=== PATIENT | male | born 1995 | race Caucasian/White ===

== ENCOUNTER 2024-05-10 04:16 | Day surgery (SDC) | payer OTHER ==
[2024-05-10] VITALS (245 sets, daily range): BP systolic 76–139; BP diastolic 38–93
[~2024-05-10] VITALS: Ht 182.9 cm; Wt 79.0 kg
[2024-05-10] MEDS ORDERED: cloNIDine HCL 0.1 MG/TAB PO PRN (07:30)
[2024-05-10] MEDS ORDERED: LACTATED RINGER'S 1,000 ML IV PRN ×3 (07:30→19:00)
[2024-05-10] MEDS ORDERED: ALBUTEROL SULFATE 2.5 MG VIAL IN PRN (07:30)
[2024-05-10] MEDS ORDERED: diazePAM 5 MG/TAB PO PRN ×2 (07:30→08:30)
[2024-05-10] MEDS ORDERED: FAMOTIDINE 20 MG/TAB PO PRN (07:30)
[2024-05-10] MEDS ORDERED: SCOPOLAMINE 1.5 MG DIS TD PRN (07:30)
[2024-05-10] MEDS ORDERED: CYANOCOBALAMIN 500 MCG/TAB ( B12) PO PRN (07:30)
[2024-05-10] MEDS ORDERED: PANTOPRAZOLE SODIUM Sesquihydr 40 MG/TAB PO PRN (07:30)
[2024-05-10] MEDS ORDERED: ASCORBIC ACID 4,000 MG in SODIUM CHLORIDE 0.9% 1,000 ML IV SCH (08:00)
[2024-05-10 08:40] LABS: ALBUMIN 4.8 g/dL (3.2-5.0); BILIRUBIN, TOTAL 0.5 mg/dL (0.2-1.3); CREATININE 0.7 mg/dL (0.7-1.3); POTASSIUM 4.2 mmol/l (3.5-5.1); TOTAL PROTEIN 7.6 g/dL (6.3-8.2)
[2024-05-10 08:48] LABS: BASO% 0.5 % (0-3); EOS% 1.2 % (0-8); HEMATOCRIT 39.4 % (39.0-50.0); HEMOGLOBIN 13.3 g/dl (14.0-18.0); IMMATURE GRANULOCYTES 0.1 % (0.0-5.0); LYMPH% 25.7 % (15-41); MEAN CELL VOLUME 83.7 fL CALC (80.0-100.0); MEAN CORPUSCULAR HGB 28.2 pG CALC (26.0-32.0); MEAN CORPUSCULAR HGB CONC 33.8 g/dL CAL (32.0-36.0); MONO% 5.6 % (2-13); NEUT# 5.06 thou/uL (1.82-7.42); NEUT% 66.9 % (42-76); RED BLOOD COUNT 4.71 mill/uL (4.70-6.10); RED CELL DISTRI WIDTH 13.2 % (11.5-15.5)
[2024-05-10] MEDS ORDERED: STERILE WATER FOR IRRIGATION 1,000 ML BTL IR PRN (09:20)
[2024-05-10] MEDS ORDERED: OCTREOTIDE ACETATE 100 MCG/VIAL SDV SC PRN (09:20)
[2024-05-10] MEDS ORDERED: THIAMINE HCL 100 MG/ML 2ML VIAL IV PRN (09:20)
[2024-05-10] MEDS ORDERED: MAGNESIUM SULFATE HEPTAHYDRATE 100 ML IV PRN (09:20)
[2024-05-10] MEDS ORDERED: LIDOCAINE HCL 1% (10MG/ML) 100 MG/10 ML MDV IV PRN (09:20)
[2024-05-10] MEDS ORDERED: MIDAZOLAM HCL 2 MG/2 ML VIAL IV PRN (09:20)
[2024-05-10] MEDS ORDERED: DEXAMETHASONE SODIUM PHOSPHATE PF 10 MG/ML SDV IV PRN ×2 (09:20→19:00)
[2024-05-10] MEDS ORDERED: ROCURONIUM BROMIDE 10 MG/ML 5ML VIAL IV PRN (09:20)
[2024-05-10] MEDS ORDERED: diazePAM 5 MG/TAB VT PRN (09:20)
[2024-05-10] MEDS ORDERED: SUCCINYLCHOLINE CHLORIDE 20 MG/ML 10ML VIAL IV PRN (09:20)
[2024-05-10] MEDS ORDERED: NALTREXONE HCL 50 MG/TAB VT PRN (09:20)
[2024-05-10] MEDS ORDERED: DiphenhydrAMINE HCL 50 MG/ML SDV IV PRN (09:20)
[2024-05-10] MEDS ORDERED: PROPOFOL 100 ML IV PRN (09:20)
[2024-05-10] MEDS ORDERED: POTASSIUM CHLORIDE 10 MEQ/50 ML BAG IV PRN (09:20)
[2024-05-10] MEDS ORDERED: PROPOFOL 10 MG/ML 100ML VIAL IV PRN (09:20)
[2024-05-10] MEDS ORDERED: cloNIDine HCL 0.1 MG/TAB VT PRN (09:20)
[2024-05-10] MEDS ORDERED: LIDOCAINE HCL 1% (10MG/ML) 100 MG/10 ML MDV VT PRN ×2 (09:20)
[2024-05-10] MEDS ORDERED: cloNIDine HYDROCHLORIDE 100 MCG/ML 10 ML INJ IV PRN (09:20)
[2024-05-10] MEDS ORDERED: SUCCINYLCHOLINE CHLORIDE 20 MG/ML 10ML VIAL IV ONE (11:16)
[2024-05-10] MEDS ORDERED: NALTREXONE50 MG PO (16:43)
[2024-05-10] MEDS ORDERED: CLONIDINE0.1 MG PO (16:43)
[2024-05-10] MEDS ORDERED: KLONOPIN2 MG PO (16:44)
[2024-05-10] MEDS ORDERED: PROMETHAZINE HCL 25 MG in SODIUM CHLORIDE 0.9% 50 ML IV ONE (17:00)
[2024-05-10] MEDS ORDERED: HALOPERIDOL LACTATE 5 MG/ML SDV IV PRN (19:00)
[2024-05-10] MEDS ORDERED: ACETAMINOPHEN 500 MG TAB PO PRN (19:00)
[2024-05-10] MEDS ORDERED: KETOROLAC TROMETHAMINE 30 MG/ML SDV IV PRN (19:00)
[2024-05-10] MEDS ORDERED: PROMETHAZINE HCL 25 MG in SODIUM CHLORIDE 0.9% 50 ML IV PRN (19:00)
[2024-05-10] MEDS ORDERED: LORazepam 2 MG/ML IV PRN ×2 (19:00)
[2024-05-10] MEDS ORDERED: ACETAMINOPHEN 1,000 MG/100 ML VIAL IV PRN (19:00)
[2024-05-10] MEDS ORDERED: PROMETHAZINE HCL 12.5 MG in SODIUM CHLORIDE 0.9% 50 ML IV PRN (19:00)
[2024-05-10] MEDS ORDERED: PATIENT' OWN MED CONTROLLED 1 EA DOSE IV PRN (21:00)
[2024-05-10] MEDS ORDERED: clonazePAM 1 MG/TAB PO PRN (23:00)
[2024-05-10] MEDS ORDERED: cloNIDine HCL 0.1 MG/TAB PO SCH (23:00)
[2024-05-11] MEDS ORDERED: clonazePAM 1 MG/TAB PO PRN ×2 (04:00→08:00)
[2024-05-11] MEDS ORDERED: cloNIDine HCL 0.1 MG/TAB PO PRN (04:00)
[2024-05-11 04:07] VITALS: BP 124/70
[2024-05-11 05:18] LABS: BASO% 0.2 % (0-3); HEMATOCRIT 36.7 % (39.0-50.0); IMMATURE GRANULOCYTES 0.1 % (0.0-5.0); LYMPH% 12.5 % (15-41); MEAN CELL VOLUME 80.1 fL CALC (80.0-100.0); MEAN CORPUSCULAR HGB 28.4 pG CALC (26.0-32.0); MEAN CORPUSCULAR HGB CONC 35.4 g/dL CAL (32.0-36.0); MONO% 1.6 % (2-13); NEUT# 7.85 thou/uL (1.82-7.42); NEUT% 85.6 % (42-76); RED BLOOD COUNT 4.58 mill/uL (4.70-6.10)
[2024-05-11 05:44] LABS: ALBUMIN 4.4 g/dL (3.2-5.0); BILIRUBIN, TOTAL 0.7 mg/dL (0.2-1.3); CREATININE 0.6 mg/dL (0.7-1.3); MAGNESIUM 1.7 mg/dL (1.6-2.3); TOTAL PROTEIN 6.9 g/dL (6.3-8.2)
[2024-05-11 05:45] LABS: POTASSIUM 3.2 mmol/l (3.5-5.1)
[2024-05-11] MEDS ORDERED: NALTREXONE HCL 50 MG/TAB PO SCH (08:00)
[2024-05-11] MEDS ORDERED: cloNIDine HCL 0.1 MG/TAB PO SCH (08:00)
[2024-05-11] MEDS ORDERED: ACETAMINOPHEN 325 MG/TAB PO SCH (08:00)
[2024-05-11] MEDS ORDERED: PANTOPRAZOLE SODIUM Sesquihydr 40 MG/TAB PO SCH (08:00)
[2024-05-11 08:20] VITALS: BP 144/76
[2024-05-11] MEDS ORDERED: POTASSIUM CHLORIDE 20MEQ 100 ML IV SCH (08:30)
[2024-05-11] MEDS ORDERED: MAGNESIUM SULFATE HEPTAHYDRATE 50 ML IV SCH (08:30)
[2024-05-11] MEDS ORDERED: POTASSIUM CHLORIDE 20 MEQ/TAB PO SCH (09:00)
[2024-05-11] MEDS ORDERED: MAGNESIUM OXIDE 400 MG/TAB PO PRN (09:00)
[2024-05-11] MEDS ORDERED: ACETAMINOPHEN 500 MG TAB PO PRN (09:00)
[2024-05-11] MEDS ORDERED: Cholecalciferol 2,000 UNIT/TAB PO PRN (09:00)
== END 2024-05-11 16:06 | disposition home or self-care (01) | DRG 897 ==
LOC: MS2 04:16 → ANR 04:16 → EDSEX 09:00 → ANR 09:00
PROVIDERS: ATTEND Anesthesiology Critical Care Medicine
DX: F11.20 Opioid dependence, uncomplicated (principal)
CPT/HCPCS: J1100; J2060; J2354; J3475; J3490